=== PATIENT | female | born 1945 ===

== ENCOUNTER 2025-08-04 18:58 | Inpatient (IN) | payer MEDICARE ==
[~2025-08-04] VITALS: Ht 152.4 cm; Wt 64.3 kg
[2025-08-04 21:04] LABS: PLATELET COUNT (AUTO) 260 K/uL (150-450); RED BLOOD CELL COUNT(AUTO) 4.25 MIL/uL (4.00-5.20); RED CELL DISTRIBUTION WIDTH 13.8 % (11.5-14.5); WHITE BLOOD COUNT (AUTO) 12.0 K/uL (4.5-11.0)
[2025-08-04 21:12] LABS: CALCIUM, TOTAL 8.8 mg/dL (8.8-10.5); CREATININE 1.23 mg/dL (0.60-1.30); GLOMERULAR FILTR. RATE CALC 42 mL/min (>60); GLUCOSE,RANDOM 125 mg/dL (70-110); SODIUM SERUM 135 mmol/L (136-145); UREA NITROGEN, BLOOD 20 mg/dL (7-18)
[2025-08-04 21:18] LABS: ASPARTATE AMINOTRANSFERASE 21.0 U/L (15-37); CREATINE KINASE, TOTAL ONLY 75.0 U/L (26-192); TOTAL PROTEIN, SERUM 6.9 g/dL (6.4-8.2)
[2025-08-04 21:22] LABS: TROPONIN I-HIGH SENSITIVITY 8 ng/L (<51)
[2025-08-05] MEDS: SODIUM CHLORIDE 0.9% 1,000 ML IV ONE (00:28)
[2025-08-05] MEDS ORDERED: ESCI20TA87 PO (02:51)
[2025-08-05] MEDS ORDERED: NAPR-1197 PO (02:51)
[2025-08-05] MEDS ORDERED: LISI-893 PO (02:51)
[2025-08-05] MEDS ORDERED: HYDR50TA36 PO (02:51)
[2025-08-05 02:58] LABS: APPEARANCE,URINE HAZY (CLEAR); GLUCOSE, URINE (UA) NEGATIVE (NEGATIVE); LEUKOCYTE ESTERASE ,URINE NEGATIVE (NEGATIVE); NITRATE,URINE NEGATIVE (NEGATIVE); OCCULT BLOOD,URINE NEGATIVE (NEGATIVE); SPECIFIC GRAVITIY, URINE 1.017 (1.003-1.030)
[2025-08-05 05:07] VITALS: BP 181/66; PULSE 60; RESP 18; TEMP 97.9; O2SAT 99
[2025-08-05] MEDS ORDERED: LEVE-71 PO (05:30)
[2025-08-05 05:54] VITALS: BP 174/59; PULSE 50; RESP 18; O2SAT 100
[2025-08-05 07:40] VITALS: BP 155/54; PULSE 50; RESP 18; TEMP 97.7; O2SAT 98
[2025-08-05] MEDS ORDERED: MORPHINE SULFATE 2 MG/ML SYRINGE IVP PRN (12:00)
[2025-08-05] MEDS ORDERED: BISACODYL 10 MG RECTAL RECTAL SUPPOSITORY PR PRN (12:00)
[2025-08-05] MEDS ORDERED: MAGNESIUM HYDROXIDE SUSPENSION 30 ML UDCUP PO PRN (12:00)
[2025-08-05] MEDS ORDERED: IPRATROPIUM BROMIDE 0.5 MG/2.5 ML NEB SOLUTION NEB PRN (12:00)
[2025-08-05] MEDS ORDERED: ONDANSETRON HCL 4 MG/2 ML VIAL IVP PRN (12:00)
[2025-08-05] MEDS ORDERED: ALBUTEROL SULFATE 2.5 MG/0.5 ML NEB SOLUTION NEB PRN (12:00)
[2025-08-05] MEDS ORDERED: HYDROCODONE/ACETAMINOPHEN 5-325 MG TABLET PO PRN (12:00)
[2025-08-05] MEDS ORDERED: MORPHINE SULFATE 4 MG/ML SYRINGE IVP PRN (12:00)
[2025-08-05] MEDS: HEPARIN SODIUM,PORCINE 5,000 UNITS/ML VIAL SQ SCH (15:50)
[2025-08-05 16:00] VITALS: BP 151/68; PULSE 78; RESP 16; TEMP 98; O2SAT 98
[2025-08-05 16:03] VITALS: BP 164/70; PULSE 66; RESP 18; TEMP 98.8; O2SAT 98
[2025-08-05 19:23] VITALS: BP 157/65; PULSE 65; RESP 18; TEMP 98.8; O2SAT 97
[2025-08-06 04:20] VITALS: BP 163/71; PULSE 58; RESP 18; TEMP 98.1; O2SAT 97
[2025-08-06 07:15] VITALS: BP 161/54; PULSE 51; RESP 18; TEMP 98.6; O2SAT 98
[2025-08-06] MEDS: ESCITALOPRAM OXALATE 20 MG TABLET PO SCH (08:33)
[2025-08-06] MEDS: PANTOPRAZOLE SODIUM 40 MG DR TABLET PO SCH (08:34)
[2025-08-06 15:20] VITALS: BP 165/72; PULSE 56; RESP 18; TEMP 98.2; O2SAT 99
[2025-08-06 19:53] VITALS: BP 133/54; PULSE 60; RESP 18; TEMP 98.2; O2SAT 99
[2025-08-06] MEDS ORDERED: SODIUM CHLORIDE 0.9% 100 ML ONE (22:33)
[2025-08-06] MEDS ORDERED: IOHEXOL 300 MG/ML 100 ML VIAL ONE (22:33)
[2025-08-06] MEDS ORDERED: 0.9% SODIUM CHLORIDE 10 ML SYRINGE IVP ONE (22:33)
[2025-08-07 05:04] VITALS: BP 110/60; PULSE 78; RESP 18; TEMP 98.2; O2SAT 97
[2025-08-07 06:30] LABS: PLATELET COUNT (AUTO) 248 K/uL (150-450); RED BLOOD CELL COUNT(AUTO) 3.93 MIL/uL (4.00-5.20); RED CELL DISTRIBUTION WIDTH 14.0 % (11.5-14.5); WHITE BLOOD COUNT (AUTO) 8.9 K/uL (4.5-11.0)
[2025-08-07 06:49] LABS: CALCIUM, TOTAL 8.8 mg/dL (8.8-10.5); CREATININE 0.82 mg/dL (0.60-1.30); GLOMERULAR FILTR. RATE CALC > 60 mL/min (>60); GLUCOSE,RANDOM 89 mg/dL (70-110); SODIUM SERUM 135 mmol/L (136-145); UREA NITROGEN, BLOOD 13 mg/dL (7-18)
[2025-08-07 08:33] VITALS: BP 137/65; PULSE 66; RESP 18; TEMP 98.8; O2SAT 99
[2025-08-07 16:54] VITALS: BP 151/70; PULSE 76; RESP 18; TEMP 98.8; O2SAT 98
[2025-08-07 20:00] VITALS: BP 115/55; PULSE 69; RESP 18; TEMP 99.3; O2SAT 97
[2025-08-07] MEDS: ZOLPIDEM TARTRATE 5 MG TABLET PO PRN (20:49)
[2025-08-08 04:00] VITALS: BP 94/50; PULSE 73; RESP 16; TEMP 99.5; O2SAT 98
[2025-08-08] MEDS: ACETAMINOPHEN 325 MG TABLET PO PRN (05:10)
[2025-08-08 08:57] VITALS: BP 120/50; PULSE 64; RESP 18; TEMP 99.1; O2SAT 95
[2025-08-08 16:14] VITALS: BP 150/65; PULSE 73; RESP 17; TEMP 98.6; O2SAT 98
== END 2025-08-08 17:30 | disposition home or self-care (01) | DRG 312 ==
LOC: EMS 19:02 → EDH 08-05 04:28 → 4E 08-05 05:03
PROVIDERS: ADMIT Hospitalist; ATTEND Hospitalist
DX: R55 Syncope and collapse (principal); G40.909 Epilepsy, unspecified, not intractable, without status epilepticus; I10 Essential (primary) hypertension; F32.A Depression, unspecified; Z66 Do not resuscitate; E86.0 Dehydration
CPT/HCPCS: 70450; 71045; 71260; 72193; 74160; 80048; 80076; 81003; 82550; 83880; 84484; 85025; 85610; 85730; 93005; 97112; 97116; 97162; 97166; 97530; 97535; 99285; G0378; J1644; J7030; J7050; Q9967; 36415-L1; 36415-TC